=== PATIENT | female | born 2000 | race Caucasian/White ===

== ENCOUNTER 2023-07-12 16:16 | Emergency (ER) | payer OTHER, SELFPAY ==
--- NOTE | 2023-07-12 16:20 | DI.MRI.S_ITS ---
PROCEDURE: MR HEAD/BRAIN WO/W CON INDICATIONS: concern for space occupying lesion causing papilledema TECHNIQUE: Noncontrast axial T1 spin echo, axial T2 fast spin echo, sagittal and axial FLAIR, coronal T2 fast spin echo, axial gradient echo, axial diffusion and ADC through the brain. After the administration of contrast, axial and coronal and sagittal 3D VIBE or T1 spin echo with fat saturation through the brain. 10 cc ProHance IV contrast. COMPARISON: None. FINDINGS: Image quality: Excellent. CSF Spaces: Basal cisterns are patent. No extra-axial fluid collections. Ventricles are normal in size and shape. Brain: No midline shift. No intracranial bleeds or masses. No abnormal intracranial enhancement. The brainstem appears normal. Diffusion-weighted images demonstrate no acute infarct. No chronic ischemic insults. Normal intravascular flow voids are present. Skull and face: Calvarial marrow is normal in signal. Orbits appear normal. Sinuses: Sinuses and mastoids appear clear. IMPRESSION: No acute abnormality identified. No mass or suspicious enhancement. No infarct. Dictated by: Eddi Fernando M.D. on 07/12/2023 at 19:56 Approved by: Eddi Fernando M.D. on 07/12/2023 at 20:00
[2023-07-12 16:35] VITALS: BP 131/86; PULSE 92; RESP 12; TEMP 36.5; O2SAT 100; BMI 37.1
[2023-07-12 16:43] VITALS: BP 130/84; PULSE 90; RESP 18; O2SAT 100
--- NOTE | 2023-07-12 19:19 | PC.NURSE ---
pt reports headache x1 year. worse over 3 months approx. pt seen for routine eye exam. md concerned for increased icp.
--- NOTE | 2023-07-12 19:21 | PC.NURSE ---
report given to melyssa char
[2023-07-12 20:12] VITALS: BP 126/68; PULSE 72; RESP 18; TEMP 36.7
--- NOTE | 2023-07-12 20:19 | ED_ITS ---
HPI - General Adult General Chief complaint: Eye Problems Stated complaint: eye problems Time Seen by Provider: 07/12/23 16:19 Source: patient Mode of arrival: Ambulatory History of Present Illness HPI narrative: Patient is a 22-year-old female who was sent to the emergency department by Optometry for a MRI. Patient went to go see Optometry today has a routine visit to get her eyes checked. She does wear corrective lenses. Apparently during the time she was found to have papilledema. Patient reports that she does frequently get headaches but no changes in her vision. No upper or lower extremity numbness or tingling. No balance issues. Review of Systems Eyes Eyes: Reports system reviewed and no additional complaints, except as documented Musculoskeletal Musculoskeletal: Reports system reviewed and no additional complaints, except as documented Neurologic Neurologic: Reports system reviewed and no additional complaints, except as documented Patient History Social History Smoking Status: Current every day smoker Smoking Status: Current every day smoker alcohol intake frequency: other Substance Use Type: does not use Exam Initial Vital Signs Initial Vital Signs: Vital Signs Temperature 97.7 F 07/12/23 16:35 Pulse Rate 92 H 07/12/23 16:35 Respiratory Rate 12 07/12/23 16:35 Blood Pressure 131/86 07/12/23 16:35 Pulse Oximetry 100 07/12/23 16:35 Oxygen Delivery Method Room Air 07/12/23 16:35 HENMT Head: normal to inspection and normocephalic Resp Effort & Inspection: normal respiratory effort Cardio Rate: regular rate Neuro General: patient alert, patient awake and patient oriented x3 Cognition: normal cognition Speech: speech normal Gait: normal gait Extrem General: normal to inspection Course Orders Ordered: ED Orders 07/12/23 16:20 MR head/brain wo/w con Stat Vital Signs Vital signs: Vital Signs - 8 hr 07/12/23 16:35 07/12/23 16:43 07/12/23 20:12 Temperature 97.7 F 98.1 F Pulse Rate 92 H 90 72 Respiratory Rate 12 18 18 Blood Pressure 131/86 130/84 126/68 Pulse Oximetry 100 100 Oxygen Delivery Method Room Air Room Air Room Air Medical Decision Making Lab Data Lab results reviewed: Yes I reviewed the patient's lab results. Labs: Point of Care Testing Test Results Negative Urine Dip Bedside Urine Glucose Negative Bedside Urine Bilirubin - Negative Bedside Urine Ketone - Negative Urine Specific [place] 1.010 Bedside Urine Occult Blood - Negative Bedside Urine pH 6.0 Bedside Urine Protein - Negative Bedside Urine Urobilinogen - Negative Bedside Urine Nitrite - Negative Bedside Urine Leukocytes - Negative Esterase Point of care testing: Point of Care Testing Test Results Negative Urine Dip Bedside Urine Glucose Negative Bedside Urine Bilirubin - Negative Bedside Urine Ketone - Negative Urine Specific [place] 1.010 Bedside Urine Occult Blood - Negative Bedside Urine pH 6.0 Bedside Urine Protein - Negative Bedside Urine Urobilinogen - Negative Bedside Urine Nitrite - Negative Bedside Urine Leukocytes - Negative Esterase Imaging Data MRI brain: Radiologist's Impression: PROCEDURE: MR HEAD/BRAIN WO/W CON INDICATIONS: concern for space occupying lesion causing papilledema TECHNIQUE: Noncontrast axial T1 spin echo, axial T2 fast spin echo, sagittal and axial FLAIR, coronal T2 fast spin echo, axial gradient echo, axial diffusion and ADC through the brain. After the administration of contrast, axial and coronal and sagittal 3D VIBE or T1 spin echo with fat saturation through the brain. 10 cc ProHance IV contrast. COMPARISON: None. FINDINGS: Image quality: Excellent. CSF Spaces: Basal cisterns are patent. No extra-axial fluid collections. Ventricles are normal in size and shape. Brain: No midline shift. No intracranial bleeds or masses. No abnormal intracranial enhancement. The brainstem appears normal. Diffusion-weighted images demonstrate no acute infarct. No chronic ischemic insults. Normal intravascular flow voids are present. Skull and face: Calvarial marrow is normal in signal. Orbits appear normal. Sinuses: Sinuses and mastoids appear clear. IMPRESSION: No acute abnormality identified. No mass or suspicious enhancement. No infarct. [facility] Narrative Medical decision making narrative: MRI of the brain ordered showed no acute pathology. Patient's symptoms today were found on a regular checkup. She has had frequent headaches. No further workup required emergently here in the emergency department although she may require further workup. Recommended that she contact her medical department for follow-up and also following up with her eye doctor. No focal neurologic symptoms found on the exam today. Discharge Plan Departure Patient Disposition: Home Clinical Impression: Papilledema Activity Restrictions/Additional Instructions: Your MRI today shows no acute issues. There was no signs of increased pressure or other emergent findings. I recommend that you contact the eye doctor who saw earlier today for a follow-up to discuss further specialist referrals as indicated. Stand Alone Forms: Patient Portal/API
== END 2023-07-12 20:28 | disposition home or self-care (01) ==
PROVIDERS: Emergency Provider Emergency Medicine
DX: H47.10 Unspecified papilledema (principal)
CPT/HCPCS: 70553; 81003; 81025; 99282; 99283; A9579

== ENCOUNTER 2023-07-17 09:24 | Emergency (ER) | payer OTHER, SELFPAY ==
[2023-07-17 09:25] VITALS: BP 156/97; PULSE 69; RESP 14; TEMP 36.6; O2SAT 98
--- NOTE | 2023-07-17 09:34 | ED.GENADULT ---
HPI - General Adult General Chief complaint: Headache Stated complaint: needs lumbar puncture after MRI scans per . Time Seen by Provider: 07/17/23 09:25 Source: patient Mode of arrival: Ambulatory History of Present Illness HPI narrative: 22yoF presents stating she was referred for a lumbar puncture. Patient has had intermittent headaches and whooshing in her ears for several months now. She saw primary care doctor, who initially thought that her symptoms were related to an ear problem and referred her to audiology. Patient was seen by Optometry who did a dilated eye exam and found papilledema. On 07/12/2023 she was referred by Optometry to the emergency department for an MRI due to for papilledema. This MRI was reported to be normal. Patient states at optometry told her that she would need a lumbar puncture to evaluate for idiopathic intracranial hypertension. Patient states her headaches are similar, she has a low grade 2/10 headache but no worse than usual. She states she is here today due to what her Ballpoint Pen Cartridge Tester told her she needed. Denies vision changes. Related Data Allergies Allergy/AdvReac Type Severity Reaction Status Date / Time gluten Allergy Unknown Verified 07/17/23 09:34 kiwi Allergy Unknown Verified 07/17/23 09:34 nickel Allergy Unknown Verified 07/17/23 09:34 Penicillins Allergy Unknown Verified 07/17/23 09:34 pineapple Allergy Unknown Verified 07/17/23 09:34 Review of Systems Review of Systems Narrative: Negative except as noted above Patient History Social History Smoking Status: Current every day smoker Smoking Status: Current every day smoker tobacco type: vaping alcohol intake frequency: other Substance Use Type: does not use Exam Initial Vital Signs Initial Vital Signs: Vital Signs Temperature 98 F 07/17/23 09:25 Pulse Rate 69 07/17/23 09:25 Respiratory Rate 14 07/17/23 09:25 Blood Pressure 156/97 H 07/17/23 09:25 Pulse Oximetry 98 07/17/23 09:25 Oxygen Delivery Method Room Air 07/17/23 09:25 Const: Awake, alert, no acute distress, nontoxic appearing Cardiac: regular rate, regular rhythm RESP: unlabored, clear bilaterally, no wheezing GI: Soft, nontender, nondistended, no rebound, no guarding MSK: Atraumatic, full range of motion, pulses equal Skin: Warm, Dry, intact, no rashes Neuro: AO x3, CN II-XII grossly intact, moves all extremities Procedures Lumbar Puncture Patient Position: left lateral decubitus Skin Prep: Povidone-Iodine 1% Local Anesthetic: lidocaine 1% Amount of anesthesia used (mL): 10 Spinal Needle Gauge: 22G Interspace Used: L3-L4 Additional Comments: unsuccessful procedure. Course Orders Ordered: ED Orders 07/17/23 10:13 Cell Count w Diff CSF Stat Glucose CSF Stat Total Protein CSF Stat Discontinued Medications Hydrocodone Bitart/Acetaminophen (Hydrocodone/Acet 5/325 Prepack) 1 bottle MISC DIRECTED ONE Stop: 07/17/23 11:15 Last Admin: 07/17/23 11:34 Dose: 1 bottle Documented By: ISAÍAS Lidocaine HCl (Lidocaine 2% Inj Mdv 20ml) 20 ml INJ INTRA-OP ONE Stop: 07/17/23 10:17 Last Admin: 07/17/23 10:40 Dose: 20 ml Documented By: ISAÍAS Lorazepam (Lorazepam 0.5 Mg Tablet) 2 mg PO NOW ONE Stop: 07/17/23 10:17 Last Admin: 07/17/23 10:22 Dose: 2 mg Documented By: ISAÍAS Morphine Sulfate (Morphine 4 Mg/Ml Inj) 4 mg IM NOW ONE Stop: 07/17/23 10:17 Last Admin: 07/17/23 10:21 Dose: 4 mg Documented By: ISAÍAS Vital Signs Vital signs: Vital Signs - 8 hr 07/17/23 09:25 07/17/23 11:40 Temperature 98 F 97.6 F Pulse Rate 69 81 Respiratory Rate 14 20 Blood Pressure 156/97 H 123/74 Pulse Oximetry 98 97 Oxygen Delivery Method Room Air Room Air Medical Decision Making Differential Diagnosis Differential Diagnosis: Migraine, tension headache, intracranial hypertension MDM Narrative Medical decision making narrative: 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 Patient has had longstanding symptoms for several months, they are no different today. Denies changes in her vision. As a courtesy a lumbar puncture was attempted, however despite 2 separate attempts at the L3-L4 and L4-L5 spinal levels I was unable to obtain spinal fluid for analysis or opening pressure. I was able to speak to diagnostic Radiology, who stated that if an order was placed from the ER they would contact the patient to try to schedule her for a lumbar puncture with Radiology later this week. Patient given a prepack of [place] for discomfort. She was advised to look for a called for her lumbar puncture appointment. ED return precautions discussed at bedside. Patient expressed understanding of the plan and is in agreement at this time. All questions answered at the time of discharge. Discharge Plan Departure Patient Disposition: Home Clinical Impression: Headache Instructions: DI for Headache Activity Restrictions/Additional Instructions: I was unfortunately not able to obtain spinal fluid today to measure your opening pressure. I did speak with our radiology department and ordered an IR guided lumbar puncture. The rewinder should call to contact you about scheduling an appointment for this procedure. Please follow up with your primary care physician. Stand Alone Forms: Patient Portal/API
[2023-07-17] MEDS: MORPHINE 4 MG/ML INJ IM (10:21)
[2023-07-17] MEDS: LORazepam 0.5 MG TABLET 2 MG PO (10:22)
[2023-07-17] MEDS: LIDOCAINE 2% INJ MDV 20ML 20 ML INJ (10:40)
[2023-07-17] MEDS: HYDROCODONE/ACET 5/325 PREPACK 1 BOTTLE MISC (11:34)
[2023-07-17 11:40] VITALS: BP 123/74; PULSE 81; RESP 20; TEMP 36.4; O2SAT 97
== END 2023-07-17 12:10 | disposition home or self-care (01) ==
PROVIDERS: Emergency Provider Emergency Medicine
DX: R51.9 Headache, unspecified (principal)
CPT/HCPCS: 62270; 96372; 99283; 99284; J2270

== ENCOUNTER 2023-07-19 21:19 | Emergency (ER) | payer OTHER, SELFPAY ==
[2023-07-19 21:31] VITALS: BP 141/68; PULSE 79; RESP 18; TEMP 37.3; O2SAT 100; BMI 38.2
--- NOTE | 2023-07-19 21:56 | PC.NURSE ---
Pt states her back pain is upper back, not where the lumbar puncture was attempted. Denied any trauma recently. Says laying down does subside most of these symptoms.
--- NOTE | 2023-07-19 22:45 | ED_ITS ---
HPI - Headache General Chief Complaint: Headache Stated Complaint: spinal tap on monday, feels bad Time Seen by Provider: 07/19/23 21:49 Source: patient Mode of arrival: Ambulatory History of Present Illness HPI Narrative: Patient has a 22-year-old female. Was seen here in the emergency department several days ago after being evaluated by her geological technician for concerns of papilledema. She had an MRI which was unremarkable. She was instructed that she needs to follow-up to have a lumbar puncture. She went back to see your geological technician. She then returned back to the emergency department earlier this week because she was told that she needed the lumbar puncture. An attempt was made here in the emergency department to obtain a lumbar puncture however according to the note there were 2 attempts and they were unable to obtain any fluid. There is a plan set up for her to get an outpatient lumbar puncture. This does not need to be an emergent event. She returns to the emergency department today because yesterday she started to develop a headache that she states is different from the headaches that she was having prior. They are worse when she is sitting up and standing up. Is causing her to have quite a bit of vomiting. It is much better when she is lying down. No other new neurologic symptoms. Related Data Previous Rx's Medication Instructions Recorded hydrocodone 5 mg-acetaminophen 325 1 tab PO Q4-6H PRN pain #10 tabs 07/20/23 mg tablet Allergies Allergy/AdvReac Type Severity Reaction Status Date / Time gluten Allergy Unknown Verified 07/17/23 09:34 kiwi Allergy Unknown Verified 07/17/23 09:34 nickel Allergy Unknown Verified 07/17/23 09:34 Penicillins Allergy Unknown Verified 07/17/23 09:34 pineapple Allergy Unknown Verified 07/17/23 09:34 Review of Systems Review of Systems Narrative: See HPI Constitutional Constitutional: Reports system reviewed and no additional complaints, except as documented Patient History Social History Smoking Status: Current every day smoker Smoking Status: Current every day smoker tobacco type: vaping alcohol intake frequency: other Substance Use Type: does not use Exam Initial Vital Signs Initial Vital Signs: Vital Signs Temperature 99.1 F 07/19/23 21:31 Pulse Rate 79 07/19/23 21:31 Respiratory Rate 18 07/19/23 21:31 Blood Pressure 141/68 H 03/27/24 21:31 Pulse Oximetry 100 07/19/23 21:31 Oxygen Delivery Method Room Air 07/19/23 21:31 Const General: cooperative, comfortable and No ill appearing HENMT Head: normal to inspection and normocephalic Eyes General: Yes appearance normal, both eyes and all related structures Resp Effort & Inspection: normal respiratory effort Cardio Rate: regular rate Skin General: no rashes or lesions noted Neuro General: patient alert, patient awake, patient oriented x3 and moves all extremities Cognition: normal cognition Speech: speech normal Motor: muscle tone normal throughout Extrem General: normal to inspection and capillary refill normal Course Orders Ordered: ED Orders 07/19/23 21:35 PTT Partial Thromboplastin [place]onal[place] Stat 07/20/23 00:05 Basic Metabolic Panel Stat Complete Blood Count AUTO DIFF Stat Prothrombin Time INR Stat 07/20/23 00:06 CT head/brain wo con Stat 07/20/23 01:29 Test Serum,Qual Stat Hydrocodone Bitart/Acetaminophen (Hydrocodone/Acet 5/325 Prepack) 1 bottle MISC DIRECTED ONE Stop: 07/20/23 02:32 Discontinued Medications Diphenhydramine HCl (Diphenhydramine 50 Mg/Ml Vial) 25 mg IV NOW ONE Stop: 07/20/23 00:07 Last Admin: 07/20/23 00:17 Dose: 25 mg Documented By: SANDY Sodium Chloride (Normal Saline 0.9%) 1,000 mls @ 1,000 mls/hr IV BOLUS ONE Stop: 07/19/23 23:55 Last Infusion: 07/20/23 00:24 Dose: Infused Documented By: Admin: 07/19/23 23:06 Dose: 1,000 mls/hr Documented By: DHARMESH Metoclopramide HCl (Metoclopramide 10 Mg/2 Ml Inj) 10 mg IV NOW ONE Stop: 07/20/23 00:07 Last Admin: 07/20/23 00:17 Dose: 10 mg Documented By: SANDY Vital Signs Vital signs: Vital Signs - 8 hr 07/19/23 21:31 07/19/23 23:08 07/20/23 00:00 Temperature 99.1 F 98.5 F Pulse Rate 79 73 67 Respiratory Rate 18 16 16 Blood Pressure 141/68 H 128/68 122/67 Pulse Oximetry 100 98 100 Oxygen Delivery Method Room Air Room Air Room Air 07/20/23 00:27 07/20/23 00:30 07/20/23 01:00 Temperature Pulse Rate 67 67 56 L Respiratory Rate Blood Pressure Pulse Oximetry 100 100 98 Oxygen Delivery Method 07/20/23 01:30 Temperature Pulse Rate 57 L Respiratory Rate Blood Pressure Pulse Oximetry 97 Oxygen Delivery Method Room Air MDM - Headache Lab Data Attestation: I reviewed the patient's lab results. 07/19/23 21:35 07/19/23 21:35 Labs: Lab Results 07/19/23 07/19/23 07/20/23 Range/Units 21:35 21:35 01:29 WBC 10.5 (4.5-11.0) X10^3/uL RBC 4.61 (4.0-5.2) X10^6/uL Hgb 13.2 (12.0-16.0) g/dL Hct 39.5 (36-46) % MCV 85.8 (80-100) fL MCH 28.7 (26-34) PG MCHC 33.5 (30-36) % RDW 13.9 (11.6-14.8) % Plt Count 282 (150-400) X10^3/uL Neut % (Auto) 71.7 (50-75) % Lymph % (Auto) 20.6 L (25-40) % [place] % (Auto) 6.2 (3-14) % Eos % (Auto) 1.1 L (2-4) % Baso % (Auto) 0.4 (0-2) % Neut # (Auto) 7500 H (0290-7225) /uL Lymph # (Auto) 2200 (9777-2810) /uL [place] # (Auto) 600 (0-900) /uL Eos # (Auto) 100 (0-450) /uL Baso # (Auto) 0 (0-100) /uL PT 12.0 (9.4-12.5) SECONDS INR 1.0 (0.9-1.3) APTT 36 Cancelled (25.1-36.5) SECONDS Sodium 140 (137-145) mmol/L Potassium 3.7 (3.4-5.1) mmol/L Chloride 110 H (98-107) mmol/L Carbon Dioxide 24 (22-32) mmol/L BUN 12 (7-17) mg/dL Creatinine 0.85 (0.52-1.04) mg/dL Estimated GFR > 60 (>60) mL/min BUN/Creatinine Ratio 14.1 (6-22) Glucose 99 (70-100) mg/dL Calcium 9.3 (8.4-10.2) mg/dL Serum , Qual Negative (Negative) Imaging Data CT scan - head: Radiologist's Impression: PROCEDURE: CT HEAD/BRAIN WO CON INDICATIONS: post LP headace TECHNIQUE: Noncontrast 4.5 mm thick angled axial sections acquired from the foramen magnum to the vertex, with coronal and sagittal reformats. For radiation dose reduction, the following was used: automated exposure control, adjustment of mA and/or kV according to patient size. COMPARISON: [facility], MR, MR HEAD/BRAIN WO/W CON, 07/12/2023, 16:57. FINDINGS: Image quality: Diagnostic. CSF spaces: Basal cisterns are patent. No extra-axial fluid collections. Ventricles are normal in size and shape. Brain: No midline shift. No intracranial masses or hemorrhage. Sanchez-white matter interface is normal. Skull and face: Calvarium and visualized facial bones are intact, without suspicious lesions. Sinuses: Visualized sinuses and mastoids are clear. IMPRESSION: No acute intracranial pathology. MDM Narrative Medical decision making narrative: Patient's history and physical today is consistent with a post LP headache. It is much worse when she is sitting up and standing up and better when she was lying down. No fevers. No other new neurologic symptoms. She was already had an MRI of her brain which showed no acute pathology. She does need a lumbar puncture but this can be done as an outpatient. I have low suspicion for meningitis. Low suspicion for intracranial hemorrhage. Low suspicion for an acute CVA. She was afebrile. I did discuss the case with on-call Anesthesiology who recommended try medications 1st and obtaining a head CT. He stated that if there is a possibility that she has increased ICP because of the papilledema that doing a blood patch could actually make this worse. Although causing a headache having a CSF leak may actually improve any potential increased ICP. After receiving medications here in the ER she stated that she was feeling much better. When she was sitting up her headache was not completely gone but was much improved. She was able to walk to the bathroom. She was able to sit up in the wheelchair in order to go and get the head CT. I gave her the option of staying here in the emergency department and talking with the anesthesiologist in the morning about having the blood patch versus going home with medications. After this discussion the patient opted to be discharged home. Discharge Plan Departure Patient Disposition: Home Clinical Impression: Headache Instructions: DI for Headache Activity Restrictions/Additional Instructions: I would recommend that you still pursue having a lumbar puncture in order to completely evaluate for increased pressure although this does not need to be an emergent procedure. It can be done as an outpatient. You can talk with your primary doctor about this. With regard to the headache that you are having today I recommend that you increase your fluid intake. Use the pain medication as needed. Return to the emergency department for new symptoms. Prescriptions: New hydrocodone-acetaminophen 5-325 mg tablet 1 tab PO Q4-6H PRN (Reason: pain) Qty: 10 0RF Referrals: ProviderNguyen [Primary Care Provider] - Stand Alone Forms: Patient Portal/API
[2023-07-19] MEDS: SODIUM CHLORIDE 0.9% 1,000 ML 1000 ML IV (23:06)
[2023-07-19 23:08] VITALS: BP 128/68; PULSE 73; RESP 16; TEMP 36.9; O2SAT 98
[2023-07-20] VITALS: BP 122/67; PULSE 67; RESP 16; O2SAT 100
--- NOTE | 2023-07-20 00:06 | DI.CT.S_ITS ---
PROCEDURE: CT HEAD/BRAIN WO CON INDICATIONS: post LP headace TECHNIQUE: Noncontrast 4.5 mm thick angled axial sections acquired from the foramen magnum to the vertex, with coronal and sagittal reformats. For radiation dose reduction, the following was used: automated exposure control, adjustment of mA and/or kV according to patient size. COMPARISON: [facility], MR, MR HEAD/BRAIN WO/W CON, 07/12/2023, 16:57. FINDINGS: Image quality: Diagnostic. CSF spaces: Basal cisterns are patent. No extra-axial fluid collections. Ventricles are normal in size and shape. Brain: No midline shift. No intracranial masses or hemorrhage. Sanchez-white matter interface is normal. Skull and face: Calvarium and visualized facial bones are intact, without suspicious lesions. Sinuses: Visualized sinuses and mastoids are clear. IMPRESSION: No acute intracranial pathology. Dictated by: Maxx Stover M.D. on 07/20/2023 at 1:50 Approved by: Maxx Stover M.D. on 07/20/2023 at 1:52
[2023-07-20 00:17] LABS: Add Manual Diff / Slide Review NO; Basophils Absolute Auto 0 /uL (0-100); Basophils Percent Auto 0.4 % (0-2); Eosinophils Absolute Auto 100 /uL (0-450); Eosinophils Percent Auto 1.1 % (2-4); Hematocrit 39.5 % (36-46); Hemoglobin 13.2 g/dL (12.0-16.0); Lymphocytes Absolute Auto 2200 /uL (1100-4500); Lymphocytes Percent Auto 20.6 % (25-40); Mean Corpuscular HGB Conc 33.5 % (30-36); Mean Corpuscular Hemoglobin 28.7 PG (26-34); Mean Corpuscular Volume 85.8 fL (80-100); Monocytes Absolute Auto 600 /uL (0-900); Monocytes Percent Auto 6.2 % (3-14); Neutrophils Absolute Auto 7500 /uL (1500-7000); Neutrophils Percent Auto 71.7 % (50-75); Platelet Count 282 X10^3/uL (150-400); Red Blood Cell Count 4.61 X10^6/uL (4.0-5.2); Red Cell Distribution Width 13.9 % (11.6-14.8); White Blood Cell Count 10.5 X10^3/uL (4.5-11.0)
[2023-07-20] MEDS: diphenhydrAMINE 50 MG/ML VIAL 25 MG IV (00:17)
[2023-07-20] MEDS: METOCLOPRAMIDE 10 MG/2 ML INJ IV (00:17)
[2023-07-20 00:20] LABS: PTT Partial Thromboplastin Tim 36 SECONDS (25.1-36.5)
[2023-07-20 00:22] LABS: BUN Creatinine Ratio 14.1 (6-22); Blood Urea Nitrogen 12 mg/dL (7-17); Calcium 9.3 mg/dL (8.4-10.2); Carbon Dioxide 24 mmol/L (22-32); Chloride 110 mmol/L (98-107); Estimated Glomerular Filt Rate > 60 mL/min (>60); Glucose 99 mg/dL (70-100); HEMOLYSIS 21 (0-50); Potassium 3.7 mmol/L (3.4-5.1); Sodium 140 mmol/L (137-145)
[2023-07-20 00:27] VITALS: PULSE 67; O2SAT 100
[2023-07-20 00:30] VITALS: PULSE 67; O2SAT 100
[2023-07-20 01:00] VITALS: PULSE 56; O2SAT 98
[2023-07-20 01:30] VITALS: PULSE 57; O2SAT 97
[2023-07-20 01:35] LABS: Pregnancy Test Serum,Qual Negative (Negative)
[2023-07-20] MEDS: HYDROCODONE/ACET 5/325 PREPACK 1 BOTTLE MISC (02:36)
[2023-07-20 02:50] VITALS: BP 113/62; PULSE 60; RESP 99; O2SAT 14
== END 2023-07-20 02:51 | disposition home or self-care (01) ==
PROVIDERS: Emergency Provider Emergency Medicine
DX: R51.9 Headache, unspecified (principal)
CPT/HCPCS: 36415; 70450; 80048; 84703; 85025; 85610; 85730; 96361; 96374; 96375; 99284; J1200; J2765